=== PATIENT | female | born 1960 | race Caucasian/White ===

== ENCOUNTER 2022-02-15 09:33 | Emergency (ER) | payer OTHER ==
[~2022-02-15] VITALS: Ht 160 cm; Wt 88.5 kg
[2022-02-15 09:54] VITALS: BP 145/96
--- NOTE | 2022-02-15 10:07 | NUR ---
MONICASelmaribell, C/O PAIN IN LEFT LOWER EXTREMITY THROBBING ACHING WENT TO URGENT CARE WAS TOLD TO GO TO ER AND GET AN ULTRA SOUND NO S/S ON OUTER SKIN NO DISCOLORATION NOTED APPEARS TO BE A BITE FROM BUG ON LEFT ANTERIOR SIDE OF LLE
== END 2022-02-15 13:07 | disposition home or self-care (01) ==
LOC: ER 09:45
DX: M79.604 Pain in right leg (principal); Z88.8 Allergy status to other drugs, medicaments and biological substances
CPT/HCPCS: 93971-TC